=== PATIENT | male | born 1970 | race Caucasian/White ===

== ENCOUNTER 2018-09-06 08:24 | Outpatient (REF) | payer BC, SELFPAY ==
[2018-09-06 12:45] LABS: Anion Gap 8.9 mmol/L (3-11); BUN 11 mg/dL (7-18); CO2 29.1 mmol/L (21.0-32.0); CREATININE 0.96 mg/dL (0.70-1.30); Calcium 9.2 mg/dL (8.5-10.1); Chloride 102 mmol/L (98-107); Cholesterol 232 mg/dL (50-200); Glucose 86 mg/dL (70-100); HDL Cholesterol 57 mg/dL (40-60); LDL CHOLESTEROL 171 mg/dL (<100); Potassium 4.8 mmol/L (3.5-5.1); Sodium 140 mmol/L (136-145); TSH (W/Ref FT4) 1.01 uIU/mL (0.358-3.74); Triglyceride 88 mg/dL (30-150)
== END 2018-09-06 08:44 ==
LOC: NCHCN 08:24
PROVIDERS: PCP Family Medicine; Visit Provider Family Medicine
DX: Z00.00 Encounter for general adult medical examination without abnormal findings (principal); I10 Essential (primary) hypertension
CPT/HCPCS: 80048; 80061; 83721; 84443

== ENCOUNTER 2019-01-07 14:59 | Outpatient (REF) | payer BC, SELFPAY ==
[2019-01-07 19:15] LABS: Abs Immature Grans 0.02 k/cumm (0.0-0.09); Absolute Basophil Count 0.03 k/cumm (0.0-0.2); Absolute Eosinophil Count 0.13 k/cumm (0.0-0.7); Absolute Lymphocyte Count 2.13 k/cumm (1.2-3.4); Absolute Monocyte Count 0.74 k/cumm (0.11-0.7); Absolute Neutrophil Count 7.33 k/cumm (1.2-6.7); Basophils % 0.3; Eosinophils % 1.3; HCT 44.9 % (40.0-50.0); HGB 15.1 g/dL (13.5-17.5); Immature Grans % 0.2; Lymphocytes % 20.5; Mean Corp. HGB Concentration 33.6 g/dL (32.0-36.0); Mean Corpuscular Hemoglobin 31.3 pg (27.0-33.0); Mean Platelet Volume 11.4 fL (8.0-11.0); Monocytes % 7.1; Neutrophils % 70.6; Platelet Count 225 x1000/uL (130-400); RBC 4.83 m/cumm (4.50-6.00); RBC Distribution Width 12.6 % (11.8-14.1); White Blood Cell Count 10.38 k/cumm (4.4-10.8)
[2019-01-07 19:44] LABS: ALT 48 U/L (12-78); AST 26 U/L (15-37); Alkaline Phosphatase 74 U/L (46-116); Anion Gap 10.7 mmol/L (3-11); BUN 12 mg/dL (7-18); Bilirubin, Total 0.5 mg/dL (0.2-1.0); CO2 26.3 mmol/L (21.0-32.0); CREATININE 1.06 mg/dL (0.70-1.30); Calcium 9.4 mg/dL (8.5-10.1); Chloride 102 mmol/L (98-107); Glucose 89 mg/dL (70-100); Potassium 4.5 mmol/L (3.5-5.1); Sodium 139 mmol/L (136-145); Total Protein 7.8 g/dL (6.4-8.2)
[2019-01-07 20:31] LABS: ESR 22 MM/HR (0-15)
== END 2019-01-07 15:19 ==
LOC: NCHCN 14:59
PROVIDERS: PCP Family Medicine; Visit Provider Family Medicine
DX: R53.81 Other malaise (principal)
CPT/HCPCS: 80053; 85652; 85025

== ENCOUNTER 2020-12-12 13:36 | Emergency (ER) | payer BC, SELFPAY ==
[2020-12-12 13:46] VITALS: BP 179/100; PULSE 99; TEMP 36.5; O2SAT 100
--- NOTE | 2020-12-12 14:00 | DI.RAD_ITS ---
EXAM: XR ANKLE RT COMPLETE CLINICAL HISTORY: pain, ski injury, ttp lateral distal fib. TECHNIQUE: 2D digital imaging was performed. COMPARISON: No exams were available for comparison FINDINGS: There is no oblique fracture of the distal fibula, nondisplaced. Slight widening of the mortise note d on medial aspect. Talar dome appears unremarkable. Medial malleolus and posterior malleolus are u nremarkable. Fifth metatarsal base unremarkable. No degenerative changes. IMPRESSION: Distal fibular fracture. Mild widening of the mortise. DATA REPOSITORY: RADIATION DOSE DELIVERED:
--- NOTE | 2020-12-12 14:00 | DI.RAD_ITS ---
EXAM: XR TIB/FIB RT CLINICAL HISTORY: pain, ski injury, ttp lateral distal fib. TECHNIQUE: 2D digital imaging was performed. COMPARISON: No exams were available for comparison FINDINGS: There is no oblique nondisplaced fracture of the distal fibula just above the malleolus. There appea rs to be slight subtle widening of the ankle mortise. No other fibular fractures identified nor frac ture of the tibia. No osseous lesions. IMPRESSION: Distal fibular fracture. Mild widening of the mortise. No tibial fracture. DATA REPOSITORY: RADIATION DOSE DELIVERED:
--- NOTE | 2020-12-12 14:16 | W.ED.GENAD ---
Discharge Plan Disposition Patient Disposition: HOME Condition: Stable Discharge Details Clinical Impression: Closed fracture of distal end of right fibula Primary Care Provider: Nathaniel Quintero ED Provider: Cezar Blake Home Meds and New Rx's Prescriptions: Continued Emerg C 1 pkt PO BID RF: 0 amlodipine 5 mg tablet 5 mg PO DAILY RF: 0 Discharge Instructions Instructions: Ankle Fracture (ED) Additional Instructions: Your blood pressure was slightly elevated today. Be sure to discuss this with your doctor and have it rechecked as dosing changes may need to be made to your antihypertensive medication. Please take ibuprofen over the counter. Take 600mg by mouth every 6 hours as needed for pain. Please use orthopedic boot and crutches. You may bear light weight as tolerated. Keep leg elevated as much as possible over the next few days to reduce swelling. Please follow-up with orthopedics. Call on Monday to arrange timely follow-up. Return to the emergency department immediately for any worsening or new concerning symptoms. Referrals: Asael Chaudhry MD [ [facility] STAFF PHYSICIAN] - Discharge Data Discharge Date/Time-TO BE ENTERED AT DEPARTURE: 12/12/20 15:00 Medical Decision Making 50-year-old male here with distal right lateral lower leg pain and significant swelling extending into his foot since injury skiing 2 days ago. Tender distal fibula. Neurovascular intact. Concern for distal fibula fracture. Offered analgesic and patient declined. X-ray of the ankle and tib-fib reveal fracture of the distal fibula, spiral with minimal displacement. Patient placed in equalizer walking boot and provided crutches. He was advised that he could weight-bear as tolerated and instructed to follow-up with orthopedics. Usual customary discharge instructions reviewed with the patient. HPI General Mode of arrival: ambulatory. Date/Time Provider Initiated Documentation: 12/12/20 13:38. Limitations to Documentation: no limitations. Information obtained by: patient. HPI Narrative: 50-year-old male presents with chief complaint of right ankle pain. Patient states that he was backcountry skiing and twisted his right ankle in a ski boot. He experienced a snap and pain. Patient notes he continues have pain now with any twisting motion. Patient has no pain while lying at rest and no significant pain on weightbearing. He has no associated numbness or tingling. He does note associated significant swelling initially of the distal lateral lower leg and now of the foot. Related Data Home Medications Medication Instructions Recorded Confirmed Emerg C 1 pkt PO BID 06/06/14 12/12/20 amlodipine 5 mg PO DAILY 12/12/20 12/12/20 Allergies Allergy/AdvReac Type Severity Reaction Status Date / Time Penicillins Allergy Unverified 12/22/20 07:57 egg plant Allergy Intermediate throat Uncoded 12/22/20 07:57 itching, General Stated Complaint: Orthopedic JOANNA: 3 Review of Systems Constitutional Constitutional: Denies fever(s) Musculoskeletal Musculoskeletal: Reports as per HPI Neurologic Neurologic: Reports as per HPI [facility] Social History Smoking/Tobacco Use Status: Never Smoking risk assessment performed?: Yes Alcohol Intake: current Alcohol Intake frequency: a few times a week Alcohol type: beer and wine Drug use: Never Substance use type: does not use Do you feel safe at home: Yes Do you feel safe in your relationship?: Yes Exam Const General: cooperative and no acute distress HENMT Mouth: moist mucous membranes Cardio Rate: regular rate Rhythm: regular rhythm Skin General skin exam: no rashes or lesions noted Neuro General: patient alert, patient awake and tone normal Extrem Right lower extremity: lower leg Details: tenderness Location: of the distal fibula (Lateral) and localized swelling Location: of the distal lower leg, ankle Details: swelling and other (Achilles tendon exam normal, able to flex and extend at ankle, pain with inversion) and foot Details: toes with normal ROM, edema and motor-sensory exam Details: light-touch normal; no tenderness Psych Appearance: grossly normal Mental Status: mental status grossly normal Course Vital Signs Vital signs: Vital Signs Temperature 36.5 C 12/12/20 13:46 Pulse 99 H 12/12/20 13:46 Blood Pressure 179/100 H 12/12/20 13:46 Pulse Oximetry 100 12/12/20 13:46 Temperature 36.5 C 12/12/20 13:46 Temperature Source Temporal Artery Scan 12/12/20 13:46 Pulse 99 H 12/12/20 13:46 Respiratory Effort Non-Labored 12/12/20 13:49 Blood Pressure 179/100 H 12/12/20 13:46 Blood Pressure Position Sitting 12/12/20 13:46 Pulse Oximetry 100 12/12/20 13:46 Oxygen Delivery Method Room Air 12/12/20 13:46 Oxygen Flow Rate 0 12/12/20 13:46 Pain Level 6 12/12/20 13:46
--- NOTE | 2020-12-12 14:49 | DI.VRAD_ITS ---
PROCEDURE INFORMATION: Exam: XR Right Ankle Exam date and time: 12/12/2020 2:31 PM Age: 50 years old Clinical indication: Other: Pain, ski injury, ttp lateral distal fib TECHNIQUE: Imaging protocol: XR Right ankle. Views: 3 or more views. COMPARISON: No relevant prior studies available. FINDINGS: Bones/joints: There is an oblique fracture of the distal fibula. There is lateral malleolar soft tissue swelling. No significant displacement is noted. On the frontal view there may be some very minimal widening at the medial malleolar level. Soft tissues: Normal. IMPRESSION: Distal fibular fracture. Concern for possible widening of the medial malleolus. Dictated and Authenticated by: Sandy Brice MD. Ordering:MERLIN Robb MD
[2020-12-12 14:53] VITALS: BP 179/100; PULSE 99; TEMP 36.5; O2SAT 100
--- NOTE | 2020-12-12 14:53 | DI.VRAD_ITS ---
PROCEDURE INFORMATION: Exam: XR Right Tibia and Fibula Exam date and time: 12/12/2020 2:31 PM Age: 50 years old Clinical indication: Other: Pain, ski injury, ttp lateral distal fib TECHNIQUE: Imaging protocol: XR Right tibia and fibula. Views: 2 views. COMPARISON: No relevant prior studies available. FINDINGS: Bones/joints: Distal fibular oblique fracture. No significant displacement. There may be mild medial malleolar widening. Soft tissues: Normal. IMPRESSION: Distal fibular fracture. Possible widening of the medial malleolus. Dictated and Authenticated by: Sandy Brice MD. Ordering:MERLIN Robb MD
== END 2020-12-12 15:00 | disposition home or self-care (01) ==
PROVIDERS: Emergency Provider Student in an Organized Health Care Education/Training Program; PCP Family Medicine
DX: S82.441A Displaced spiral fracture of shaft of right fibula, initial encounter for closed fracture (principal); X50.1XXA Overexertion from prolonged static or awkward postures, initial encounter; Y93.29 Activity, other involving ice and snow
CPT/HCPCS: 29505; 99284; 73590; 73610; 99283

== ENCOUNTER 2020-12-22 13:30 | Outpatient (CLI) | payer BC, SELFPAY ==
--- NOTE | 2020-12-22 07:45 | DI.RAD_ITS ---
EXAM: XR ANKLE RT COMPLETE INDICATION: f/u fracture. COMPARISON: CR,XR XR ANKLE RT COMPLETE from 12/12/2020 TECHNIQUE: 2D digital imaging was performed. FINDINGS: There has been no change in alignment of the lateral malleolar fracture. Mild medial ankle mortise widening is again noted. There is a defect of the medial talar dome, unchanged. Soft tissue swelli ng remains present. DATA REPOSITORY: RADIATION DOSE DELIVERED:
== END 2020-12-22 13:31 | disposition home or self-care (01) ==
LOC: DIORS 13:31
PROVIDERS: PCP Family Medicine; Referring Provider Family Medicine; Visit Provider Physician Assistant Surgical
DX: S82.831A Other fracture of upper and lower end of right fibula, initial encounter for closed fracture (principal)
CPT/HCPCS: 73610

== ENCOUNTER 2021-01-04 09:22 | Outpatient (CLI) | payer BC, SELFPAY ==
--- NOTE | 2021-01-04 08:00 | DI.RAD_ITS ---
EXAM: XR ANKLE RT COMPLETE CLINICAL HISTORY: follow up TECHNIQUE: 2D digital imaging was performed. COMPARISON: CR,XR XR ANKLE RT COMPLETE from 12/12/2020 CR,XR XR ANKLE RT COMPLETE from 12/12/2020 CR XR ANKLE RT COMPLETE from 12/22/2020 CR XR ANKLE RT COMPLETE from 12/22/2020 FINDINGS: There has been no change in alignment of the distal fibular fracture. There is some callus formation around the fracture. No ankle mortise widening is seen. Talar dome defect is again noted. Soft ti ssue swelling remains plaque present. IMPRESSION: Stable fracture alignment.
== END 2021-01-04 09:23 | disposition home or self-care (01) ==
LOC: DIORS 09:23
PROVIDERS: PCP Family Medicine; Referring Provider Family Medicine; Visit Provider Physician Assistant Surgical
DX: S82.491D Other fracture of shaft of right fibula, subsequent encounter for closed fracture with routine healing (principal)
CPT/HCPCS: 73610

== ENCOUNTER 2021-02-01 10:11 | Outpatient (CLI) | payer BC, SELFPAY ==
--- NOTE | 2021-02-01 08:10 | DI.RAD_ITS ---
EXAM: XR ANKLE RT COMPLETE CLINICAL HISTORY: f/u fracture. TECHNIQUE: 2D digital imaging was performed. COMPARISON: CR XR ANKLE RT COMPLETE from 01/04/2021 FINDINGS: BONES: There is continued healing of the nondisplaced distal right fibular fracture. No new fracture or dislocation. Lucency seen in the talar dome are again noted. JOINTS: The ankle mortise is normally aligned. SOFT TISSUE: Increased soft tissue swelling is seen about the ankle. IMPRESSION: 1. Stable continued healing of the distal right fibular fracture. 2. Increased soft tissue swelling about the ankle. DATA REPOSITORY: RADIATION DOSE DELIVERED:
== END 2021-02-01 10:12 | disposition home or self-care (01) ==
LOC: DIORS 10:27
PROVIDERS: PCP Family Medicine; Referring Provider Family Medicine; Visit Provider Physician Assistant Surgical
DX: S82.441D Displaced spiral fracture of shaft of right fibula, subsequent encounter for closed fracture with routine healing (principal)
CPT/HCPCS: 73610

== ENCOUNTER 2021-03-01 20:30 | Outpatient (REF) | payer BC, SELFPAY ==
[2021-03-01 14:43] LABS: Anion Gap 10.9 mmol/L (3-11); BUN 9 mg/dL (7-18); CO2 27.1 mmol/L (21.0-32.0); CREATININE 0.9 mg/dL (0.70-1.30); Calcium 9.4 mg/dL (8.5-10.1); Chloride 104 mmol/L (98-107); Glucose 99 mg/dL (74-106); Potassium 4.2 mmol/L (3.5-5.1); Sodium 142 mmol/L (136-145)
[2021-03-02 10:52] LABS: Hepatitis C Ab w Rflx HCV PCR Negative (Negative)
== END 2021-03-01 20:31 | disposition home or self-care (01) ==
LOC: NCHCN 20:30
PROVIDERS: PCP Family Medicine; Visit Provider Family Medicine
DX: I10 Essential (primary) hypertension (principal); Z00.00 Encounter for general adult medical examination without abnormal findings; Z11.59 Encounter for screening for other viral diseases
CPT/HCPCS: 80048; 86803

== ENCOUNTER 2021-05-07 18:50 | Outpatient (REF) | payer BC, SELFPAY ==
[2021-05-07 19:20] LABS: Anion Gap 10.7 mmol/L (3-11); BUN 13 mg/dL (7-18); CO2 26.3 mmol/L (21.0-32.0); Calcium 9.4 mg/dL (8.5-10.1); Chloride 104 mmol/L (98-107); Glucose 104 mg/dL (74-106); Potassium 4.9 mmol/L (3.5-5.1); Sodium 141 mmol/L (136-145)
== END 2021-05-07 18:51 | disposition home or self-care (01) ==
LOC: NCHCN 18:50
PROVIDERS: PCP Family Medicine; Visit Provider Family Medicine
DX: I10 Essential (primary) hypertension (principal)
CPT/HCPCS: 80048

== ENCOUNTER 2022-05-31 19:01 | Outpatient (REF) | payer BC, SELFPAY ==
[2022-05-31 21:52] LABS: CREATININE 1.2 mg/dL (0.70-1.30); Calculated LDL 188 mg/dL (<100); Cholesterol 278 mg/dL (<200); HDL Cholesterol 72 mg/dL (40-60); Triglyceride 92 mg/dL (<150)
== END 2022-05-31 19:02 | disposition home or self-care (01) ==
LOC: NCHCN 19:01
PROVIDERS: PCP Family Medicine; Visit Provider Family Medicine
DX: Z00.00 Encounter for general adult medical examination without abnormal findings (principal); I10 Essential (primary) hypertension
CPT/HCPCS: 80061; 82565

== ENCOUNTER 2022-06-20 06:53 | Day surgery (SDC) | payer BC, SELFPAY ==
--- NOTE | 2022-06-20 06:16 | W.COLOREPORT ---
Colonoscopy Report Date of procedure: 06/20/22 Pre-op diagnosis general: Colon Cancer Screening, Hx of colon polyps Post-op diagnosis procedure note: same Procedure: Colonoscopy with polypectomy Surgeon: Rosemary Serrano Anesthesia Type: General:No Airway Estimated blood loss (mL): 3 Pathology: other (ascending polyp) Complications: None Disposition: same day Indications: The patient is here for Colonoscopy pre-op.?His last screening was in 2013, which was remarkable for tubular adenomatous polyp. He reports a family history of colon cancer in his paternal uncle.?He has not had any bowel habit changes. -Discussed colonoscopy bowel prep as well as the procedure. Discussed possible complications of the procedure to include bleeding, pain, perforation, missed small lesion/polyp, sore throat, aspiration and adverse reaction to the medications. Questions were answered to patient?s satisfaction. No guarantees were implied or given. Prep: Miralax/Dulcolax Procedure Start Time: 08:27 Procedure End Time: 08:51 Retraction Time: 10 minutes Findings: one polyp Procedure Description: After informed consent was obtained the patient was taken to the procedure room and placed in a left decubitous position. Monitors were applied and a time out was done. The patients name, date of , procedure, allergies to medications and metal in their body was reviewed. The patient was then sedated. Once sedated and comfortable a rectal exam was done. External exam was normal. Internal exam revealed a normal sphincter tone and no palpable masses. The prostate felt smooth. The scope was then introduced and retro-flexed. No internal hemorrhoids, polyps or masses were identified on retro-flexion. The scope was then advanced to the cecum without difficulty. The ileocecal vlave and appendiceal orifice were identified. The prep was good. The scope was then slowly retracted over 10 minutes back into the rectum. Polyps were removed with cold forceps in the ascending colon. There was no diverticulosis noted. The scope was removed and the patient was woken up and taken back to Same day surgery in stable condition. The patient tolerated the procedure well and there were no immediate complications. Follow up: The patient should follow up in 5 years unless they develop changes in bowel habits or other new gastrointestinal complaints.
--- NOTE | 2022-06-20 06:17 | W.PM.DSUDISC ---
Discharge Plan Disposition Patient Disposition: HOME Condition: Good Discharge Details Reason For Visit: colonoscopy Attending Provider: Rosemary Serrano Primary Care Provider: Nathaniel Quintero Home Meds and New Rx's Prescriptions: Continued amlodipine 5 mg tablet 10 mg PO HS cholecalciferol (vitamin D3) 25 mcg (1,000 unit) capsule 25 mcg PO DAILY lisinopril 10 mg tablet 10 mg PO BID Emerg C 1 pkt PO BID Discontinued bisacodyl [Dulcolax (bisacodyl)] 5 mg tablet,delayed release (DR/EC) 5 mg PO ONCE Qty: 4 0RF Rx Instructions: Take according to provider's instructions for colonoscopy prep. polyethylene glycol 3350 17 gram/dose powder 17 g PO ONCE Qty: 238 0RF Rx Instructions: To be taken as directed by prescriber's office for colonoscopy prep. Discharge Instructions Instructions: Colorectal Polyps (DC) Additional Instructions: Findings: one polyp Follow up: most likely 5 years Please call if you develop: fevers >101.5 Nausea or Vomiting Abdominal pain that is not transient Rectal bleeding that is more then a tbsp A hard abdomen and inability to pass gas DAY SURGERY UNIT POST ENDOSCOPY INSTRUCTIONS Instructions for everyone who is given Anesthesia: For your safety, please do the following for the next 24 Hours: a. Do not drive or operate dangerous equipment b. Do not drink alcohol beverages or use any recreational drugs for the first 24 hours or while taking pain medications. The medications in your body may have a reaction that can be dangerous. c. Do not make any important decisions or sign any important papers 1. Generally there are no restrictions on your activity after a day or so has gone by, but you may feel a bit fatigued for a few days. 2. After you arrive home you may have a light meal and return to a normal diet as you can tolerate it without feeling sick to your stomach. 3. After surgery, you may feel pain or discomfort. This should be only transient, but if it persists please contact your doctor. 4. If there are any questions regarding the findings of your procedure, please feel free to contact your doctor. 6. If you are unable to contact your doctor with a problem, contact the hospital at [phone]. 7. Continue all your regular medications unless directed otherwise. I understand the above instructions and have no questions. Signature of Patient or Responsible Adult Escort Date/Time Name of Responsible Adult Escort Signature of Nurse Date/Time Activity:: Activity as Tolerated Diet:: As Tolerated Discharge Orders Discharge Orders: Discharge Order (Routine); Ordered 06/20/22 Ordered By: Rosemary Serrano
[2022-06-20 07:22] VITALS: BP 143/90; PULSE 79; RESP 16; TEMP 36.6; O2SAT 98
[2022-06-20] MEDS: Lactated Ringers 1,000 ML 80 ML IV (07:34)
--- NOTE | 2022-06-20 08:10 | W.ANESPRE ---
General Info Date of Service Date Performed: 06/20/22 Height: 5 ft 10 in Weight: 100.244 kg Body Mass Index (BMI): 31.7 Surgical Procedure: Operation Date: 06/20/22 09:05 Proposed Procedure Side Surgeon rojas Serrano MD Meds Allergies and Home Medications Allergies Allergy/AdvReac Type Severity Reaction Status Date / Time Penicillins Allergy Unverified 06/20/22 07:13 egg plant Allergy Intermediate throat Uncoded 06/20/22 07:13 itching, Home Medication Medication Instructions Recorded Emerg C 1 pkt PO BID 06/06/14 amlodipine 5 mg tablet 10 mg PO HS 02/01/21 cholecalciferol (vitamin D3) 25 25 mcg PO DAILY 09/30/21 mcg (1,000 unit) capsule bisacodyl 5 mg tablet,delayed 5 mg PO ONCE #4 tabs 06/02/22 release (Dulcolax (bisacodyl)) lisinopril 10 mg tablet 10 mg PO BID 06/02/22 polyethylene glycol 3350 17 17 g PO ONCE #238 grams 06/02/22 gram/dose oral powder Current Visit Medications: Current Medications Generic Name Dose Route Start Last Admin Trade Name Freq PRN Reason Stop Dose Admin Hyoscyamine Sulfate 0.125 mg 06/20/22 06:18 Hyoscyamine 0.125 Mg Sl/Oral/Chew SL DIRECTED PRN Ringer's Solution 1,000 mls @ 80 mls/hr 06/20/22 06:00 06/20/22 07:34 IV 07/17/22 23:59 80 mls/hr INFUSION REYNALDO Administration IV Miscellaneous Supplies 1 each 06/20/22 06:00 Iv Access IV 07/17/22 23:59 DIRECTED REYNALDO Ondansetron HCl 4 mg 06/20/22 06:18 Ondansetron 4 Mg/2 Ml Vial IVP Q4H PRN PRN Nausea / Vomiting Sodium Chloride 0 ml 06/20/22 06:00 Normal Saline Flush 10 Ml Syr IV 07/17/22 23:59 PRN PRN Sodium Chloride 0 ml 06/20/22 06:00 Normal Saline 10 Ml Vial IJ 07/17/22 23:59 DIRECTED PRN Sterile Water 0 ml 06/20/22 06:00 Water,Injection,Sterile 10 Ml Vial IJ 07/17/22 23:59 DIRECTED PRN PFSH Active Problems Active Problems: Problem Status Onset Code Screening for colon cancer Z12.11 Hypertension I10 History of adenomatous polyp of colon Z86.010 Medical History Medical History (Updated 06/20/22 @ 07:12 by Carey Muse) Congenital soft palate abnormality Hx of fracture of ankle 11/2020 Myxoid cyst Medical History Comments:: (Per pt. states his cousin had issues with anesthesia, had to be put on a respirator post-op) Surgical History Surgical History History of colonoscopy (~05/2014) Tobacco Smoking/Tobacco Use Status: Never Alcohol Alcohol Intake: current Alcohol intake frequency: 0-2 drinks per day Alcohol type: beer and wine Substance Use Substance use: Never Substance use type: does not use Vital Signs and Lab Results Vital Signs Most Recent Vital Signs in EMR: Most Recent Vital Signs Temp Pulse Resp BP Pulse Ox 36.6 C 79 16 143/90 H 98 06/20/22 07:22 06/20/22 07:22 06/20/22 07:22 06/20/22 07:22 06/20/22 07:22 Lab Results Blood Type / Crossmatch: No Data to Display Complete Blood Count: No Data to Display Complete Metabolic Panel: Creatinine 1.2 mg/dL (0.70-1.30) 05/31/22 16:05 Estimated GFR/1.73 m2 >= 60.00 (mL/min/1.73m2) 05/31/22 16:05 Liver Function Panel: No Data to Display Coagulation Panel: No Data to Display Cardiac Panel: No Data to Display Arterial Blood Gas: No Data to Display Venous Blood Gas: No Data to Display Pancreas Panel: No Data to Display Thyroid Panel: No Data to Display Infectious Disease: No Data to Display Blood Cultures: No Data to Display Toxicology Panel: No Data to Display Anesthesia Assessment and Plan Anesthesia History Personal History: No History of Anesthesia Complications Family History: Other (1st cousin Mom's side hx autoimmune disorders- apnea) Exercise Tolerance Exercise Tolerance: Metabolic Equivalents>4 Pertinent Negatives Pertinent Negatives: No Symptoms of GERD, No Major Cardiovascular Symptoms or Complaints (Stress test negative ), No Major Pulmonary Symptoms or Complaints and No History of CVA/TIA Cardiac & Pulmonary Exam Cardiac Exam: Normal S1/S2 Heart Sounds Pulmonary Exam: Clear Bilateral Breath Sounds Implantable Cardiac Device Does patient have a Pacemaker or an ICD?: No Airway Exam Known Difficult Airway: No Mallampati Class: 1 Mouth Opening: Normal (> 3cm) Thyromental Distance: Greater than 3 cm Neck Range of Motion: Full ROM Neck Circumference: Normal Teeth Condition: Normal Dentition Airway Comments: Lower right crown ASA Classification ASA Score: ASA 2 Emergency Case?: No NPO Status NPO Status: NPO Clears >2 hours, Solids >8 hours Anesthesia Plan Resuscitation Status: Full Code Anesthesia Technique: General Anesthesia Airway Planned: Natural Airway Monitors Used: Standard Monitors
[2022-06-20 08:13] VITALS: BMI 31.7
--- NOTE | 2022-06-20 08:40 | BOWEL_PTH ---
PATIENT: Zack Arnold LOC: [facility] U#:[id number] AGE/SX: 52/M ROOM: RE06/20/[address]: Rosemary Serrano MD : 1970 BED: DIS: 06/20/2022 SPEC #: [id number] RECD: 06/20/22 11:31 STATUS: GILBERTO REBen #: [id number] JERRY: 06/20/22 08:[address]: Rosemary Serrano DEPT: Surgical Specimen RECD BY: Jennifer Sheffield ENTERED: 06/20/22 11:31 SP TYPE: Bowel OTHR DR: Nathaniel Quintero Tissues: 1 - BIOPSY BOWEL Procedures: GROSS AND MICRO LEVEL 4 Comments: [id number]
[2022-06-20 09:00] VITALS: BP 108/73; PULSE 72; RESP 16; TEMP 36.1; O2SAT 95
--- NOTE | 2022-06-20 09:01 | W.ANESPOSTOP ---
Postoperative Evaluation Date, Time and Location Date Performed: 06/20/22 Time Performed: 09:01 Patient Location: Day Surgery Unit Vital Signs Most Recent Imported Vital Signs: Most Recent Vital Signs Temp Pulse Resp BP Pulse Ox 36.6 C 79 16 143/90 H 98 06/20/22 07:22 06/20/22 07:22 06/20/22 07:22 06/20/22 07:22 06/20/22 07:22 Most Recent Manually Entered Vital Signs: Adult Blood Pressure: 108/73 Heart Rate: 74 Respirations: 12 Oxygen Saturation (%): 96 Temperature (C): 36.3 C Pain Score (0-10 Scale): 0 Pain Score Most Recent Pain Score: Most Recent Pain Score Pain Level 0 06/20/22 07:22 Assessment Mental Status: Awake (Alert & Oriented to Patient Baseline) Airway and Respiratory Function: Patent airway with normal (patient baseline) respiratory exam Cardiovascular Function: Hemodynamically Stable Hydration Status: Adequately Hydrated Nausea & Vomiting: No Nausea or Vomiting Pain: Pt. Denies Any Pain Peripheral Nerve Block: Patient did not receive a nerve block
[2022-06-20 09:02] VITALS: BP 108/73; PULSE 74; RESP 12; TEMPC 36.3; O2SAT 96
[2022-06-20 09:30] VITALS: BP 124/86; PULSE 66; RESP 15; TEMP 36.1; O2SAT 98
== END 2022-06-20 09:50 | disposition home or self-care (01) ==
PROVIDERS: PCP Family Medicine; Visit Provider Surgery
PROC: 0DJD8ZZ Inspection of Lower Intestinal Tract, Via Natural or Artificial Opening Endoscopic (ICD-10-PCS; CPT 45378; principal; 2022-06-20 09:00)
DX: Z12.11 Encounter for screening for malignant neoplasm of colon (principal); K63.5 Polyp of colon; Z86.010 Personal history of colon polyps; Z80.0 Family history of malignant neoplasm of digestive organs; I10 Essential (primary) hypertension
CPT/HCPCS: 45380; 88305

== ENCOUNTER 2023-09-14 11:10 | Outpatient (REF) | payer BC, SELFPAY ==
[2023-09-14 14:24] LABS: Anion Gap 9.3 mmol/L (3-11); BUN 9 mg/dL (7-18); CO2 25.7 mmol/L (21.0-32.0); CREATININE 0.9 mg/dL (0.70-1.30); Calcium 9.4 mg/dL (8.5-10.1); Chloride 103 mmol/L (98-107); Estimated GFR 102.12 (mL/min/1.73m2); Glucose 100 mg/dL (74-106); Potassium 4.3 mmol/L (3.5-5.1); Sodium 138 mmol/L (136-145)
[2023-09-16 09:20] LABS: HIV-1/2 Ag & Ab Screen Negative (Negative)
== END 2023-09-14 11:11 | disposition home or self-care (01) ==
LOC: NCHCN 11:10
PROVIDERS: PCP Family Medicine; Visit Provider Family Medicine
DX: Z00.00 Encounter for general adult medical examination without abnormal findings (principal); I10 Essential (primary) hypertension; Z11.4 Encounter for screening for human immunodeficiency virus [HIV]
CPT/HCPCS: 80048; 87389

== ENCOUNTER 2025-04-28 18:31 | Outpatient (REF) | payer BC, SELFPAY ==
[2025-04-28 16:34] LABS: Hemoglobin A1C 5.7 % (<5.7)
[2025-04-28 16:38] LABS: ALT 67 U/L (16-63); AST 30 U/L (15-37); Albumin 4.1 g/dL (3.4-5.0); Alkaline Phosphatase 84 U/L (46-116); Anion Gap 10.3 mmol/L (3-11); BUN 9 mg/dL (7-18); Bilirubin, Total 0.5 mg/dL (0.2-1.0); CO2 26.7 mmol/L (21.0-32.0); CREATININE 0.8 mg/dL (0.70-1.30); Calcium 9.5 mg/dL (8.5-10.1); Calculated LDL 178 mg/dL (<100); Chloride 101 mmol/L (98-107); Cholesterol 260 mg/dL (<200); Estimated GFR 104.51 (mL/min/1.73m2); Glucose 105 mg/dL (74-106); HDL Cholesterol 63 mg/dL (>or=40); Potassium 4.8 mmol/L (3.5-5.1); Sodium 138 mmol/L (136-145); Total Protein 7.5 g/dL (6.4-8.2); Triglyceride 97 mg/dL (<150)
== END 2025-04-28 18:32 | disposition home or self-care (01) ==
LOC: NCHCN 18:31
PROVIDERS: PCP Family Medicine; Visit Provider Student in an Organized Health Care Education/Training Program
DX: E78.5 Hyperlipidemia, unspecified (principal); I10 Essential (primary) hypertension; Z12.5 Encounter for screening for malignant neoplasm of prostate; Z13.1 Encounter for screening for diabetes mellitus
CPT/HCPCS: 80053; 80061; 84153; 83036